=== PATIENT | female | born 1935 | race Caucasian/White ===

== ENCOUNTER 2016-06-21 19:13 | Emergency (ER) | payer BC, MEDICARE ==
[~2016-06-21] VITALS: Ht 139.7 cm; Wt 55.8 kg
[2016-06-21 19:17] VITALS: BP 126/64; PULSE 74; RESP 20; TEMP 98.1; O2SAT 96
[2016-06-21] MEDS ORDERED: ARMO60TA PO (19:34)
[2016-06-21] MEDS ORDERED: FISH120014 (19:34)
[2016-06-21] MEDS ORDERED: TRAZ50TA12 PO (19:34)
[2016-06-21] MEDS ORDERED: FOSA70TA PO (19:34)
[2016-06-21] MEDS ORDERED: PRAV40TA2 PO (19:34)
[2016-06-21] MEDS ORDERED: BIOT1SUB SL (19:34)
[2016-06-21] MEDS ORDERED: CALCTAB19 PO (19:34)
[2016-06-21] MEDS ORDERED: COENPOW21 PO (19:34)
[2016-06-21] MEDS ORDERED: MULT1CHW70 (19:34)
[2016-06-21] MEDS ORDERED: ASPI81CH CHEW (19:34)
[2016-06-21] MEDS ORDERED: PRIL20CA9 PO (19:34)
[2016-06-21] MEDS ORDERED: ESCI10TA PO (19:34)
[2016-06-21] MEDS ORDERED: MOBI15TA PO (19:34)
--- NOTE | 2016-06-21 20:42 | RADHPO ---
EXAM DATE/TIME: 06/21/2016 20:20 [facility] COMPARISON: No previous studies available for comparison. INDICATIONS : Severe right hip pain. No known trauma. MEDICAL HISTORY : None. SURGICAL HISTORY : None. 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 No acute fracture or dislocation. No bony destruct sylvia changes. 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 No acute bony abnormality. Tom Ellis MD on June 21, 2016 at 20:39 Board Certified Radiologist. This report was verified electronically.
--- NOTE | 2016-06-21 20:43 | RADHPO ---
EXAM DATE/TIME: 06/21/2016 20:25 [facility] COMPARISON: No previous studies available for comparison. INDICATIONS : Low back pain. No known trauma. MEDICAL HISTORY : None. SURGICAL HISTORY : Fusion, lumbar. ENCOUNTER: Initial ACUITY: 1 day PAIN SCORE: 8/10 LOCATION: Bilateral Paraspinal FINDINGS: There are five non-rib bearing vertebral bodies. No acute fracture. Postoperative fusion across L4-5 with residual grade 1 anterolisthesis. Bones appear osteopenic. CONCLUSION: 1. Osteopenia. No acute fracture. Minimal anterolisthesis at L4-5 where there is metallic prosthesis at the disc interspace and at the posterior elements. Tom Ellis MD on June 21, 2016 at 20:41 Board Certified Radiologist. This report was verified electronically.
--- NOTE | 2016-06-21 20:53 | PD ---
HPI Chief Complaint: Musculoskeletal Complaint Time Seen by Provider: 18:45 Travel History International Travel<30 days: No Contact w/Intl Traveler<30days: No Traveled to known affect area: No History of Present Illness HPI 81-year-old female presents the emergency Department with increased right hip and low back pain since yesterday. She has history of lumbar back pain with surgery of the L5-S1 years ago. Patient has complaining of pain into the right pelvis and into the right buttock. Patient has history of osteoporosis and arthritis. Is here from the [facility] and has been down here for approximately one month. She has no specific injury. Pain is worse with ambulation and certain movements. She denies weakness, or bowel or bladder issues. Pain at times as 8 out of 10. At rest the pain is 3 out of 10. 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 PFSH Past Medical History Depression: Yes High Cholesterol: Yes Thyroid Disease: Yes Past Surgical History Other Surgery: Yes (SPINAL) Social History Alcohol Use: No Tobacco Use: No Substance Use: No Allergies-Medications (Allergen,Severity, Reaction): Coded Allergies: No Known Allergies (Verified , 06/21/16) Uncoded Allergies: HAZELNUTS (Allergy, Unknown, 11/21/02) NKA (Allergy, Unknown, 11/21/02) Reported Meds & Prescriptions Reported Meds & Active Scripts Active Tramadol (Tramadol HCl) 50 Mg Tab 50 Mg PO Q6H PRN Prednisone 20 Mg Tab 20 Mg PO BID Reported Mobic (Meloxicam) 15 Mg Tab 15 Mg PO DAILY Prilosec (Omeprazole) 20 Mg Cap 20 Mg PO DAILY Fosamax (Alendronate Sodium) 70 Mg Tab 70 Mg PO Q7D Multivitamin Adult (Multiple Vitamins W/ Minerals) 1 Chw Chw Coenzyme Q10 1 Pow Pow 100 Mg PO DAILY Fish Oil (Barney-3 Fatty Acids) 1,200 Mg Cap Aspirin 81 Mg Chew 81 Mg CHEW DAILY Calcium 600+D 200 (Calcium Carbonate-Vitamin D) 600-200 Mg-Unit Tab 1 Tab PO BID Biotin 5,000 Mcg Subl 5,000 Mcg SL Pravastatin 40 Mg Tab 40 Mg PO DAILY Escitalopram (Escitalopram Oxalate) 10 Mg Tab 10 Mg PO DAILY Trazodone (Trazodone HCl) 50 Mg Tab 50 Mg PO HS [place] Thyroid (Thyroid) 60 Mg Tab 60 Mg PO DAILY Review of Systems Except as stated in HPI: all other systems reviewed are Neg General / Constitutional: No: Fever Eyes: No: Visual changes HENT: No: Headaches Cardiovascular: No: Chest Pain or Discomfort Respiratory: No: Shortness of Breath Gastrointestinal: No: Abdominal Pain Genitourinary: No: Dysuria Musculoskeletal: No: Pain Skin: No Rash Neurologic: No: Weakness Psychiatric: No: Depression Endocrine: No: Polydipsia Hematologic/Lymphatic: No: Easy Bruising Physical Exam Narrative GENERAL: Patient appears in mild to moderate distress. SKIN: Warm and dry. No color. Normal turgor. No rash. HEAD: Atraumatic. Normocephalic. EYES: Pupils equal and round. No scleral icterus. No injection or drainage. ENT: No nasal bleeding or discharge. Mucous membranes pink and moist. Pharynx is normal. Airway is patent. NECK: Trachea midline. No JVD. Neck is supple and nontender. CARDIOVASCULAR: Regular rate and rhythm. No murmurs gallops or rubs. RESPIRATORY: No accessory muscle use. Clear to auscultation. Breath sounds equal bilaterally. GASTROINTESTINAL: Abdomen soft, non-tender, nondistended. Hepatic and splenic margins not palpable. No CVA tenderness. MUSCULOSKELETAL: Extremities without clubbing, cyanosis, or edema. No obvious deformities. Patient has scars the lower lumbar, and tenderness in the right sacroiliac and sciatic notch. Straight leg raise is negative bilaterally. Patient has no specific hip tenderness with inner or outer rotation. NEUROLOGICAL: Awake and alert. No obvious cranial nerve deficits. Motor grossly within normal limits. Five out of 5 muscle strength in the arms and legs. Normal speech. PSYCHIATRIC: Appropriate mood and affect; insight and judgment normal. Data Data Last Documented VS Vital Signs Date Time Temp Pulse Resp B/P Pulse Ox O2 Delivery O2 Flow Rate FiO2 06/21/16 19:17 98.1 74 20 126/64 96 Orders Hip, Uni(Ap&Lat) W Ap Pelvis (06/21/16 19:42) Spine, Lumbar Comp W/Obliq (06/21/16 19:42) Prednisone (Deltasone) (06/21/16 21:00) Tramadol (Ultram) (06/21/16 21:00) MDM Medical Decision Making Medical Screen Exam Complete: Yes Emergency Medical Condition: Yes Differential Diagnosis Sacroiliitis. Acute lumbago with sciatica. Bursitis. Narrative Course Patient is medically stable at time of exam. X-rays of the right hip and pelvis are ordered as well as lumbar spine films. X-rays are read as negative for acute process per radiologist. Patient is given prednisone 40 mg by mouth as well as tramadol 50 mg by mouth. Patient is sent home on prednisone 20 mg twice a day 5 days. Patient is given tramadol 50 mg one every 6 hours when necessary pain #20. Patient take extra strength Tylenol as well as needed. Patient is encouraged to walk and keep moving despite pain. Patient should follow-up with her orthopedic surgeon upon return home or return to emergency Department with worsening symptoms if necessary. Diagnosis Primary Impression: Lumbago with sciatica, right side Referrals: Primary Care Physician call for appointment Patient Instructions: General Instructions, Sacroiliitis (ED), Sciatica (ED) Additional Instructions: X-rays are read as negative for acute process per radiologist. Patient is given prednisone 40 mg by mouth as well as tramadol 50 mg by mouth. Patient is sent home on prednisone 20 mg twice a day 5 days. Patient is given tramadol 50 mg one every 6 hours when necessary pain #20. Patient take extra strength Tylenol as well as needed. Patient is encouraged to walk and keep moving despite pain. Patient should follow-up with her orthopedic surgeon upon return home or return to emergency Department with worsening symptoms if necessary. Med/Other Pt SpecificInfo: Prescription(s) given Scripts Tramadol 50 Mg Tab50 Mg PO Q6H PRN (PAIN) #20 TAB Prov:Jennifer Blanca MD 06/21/16 Prednisone 20 Mg Tab20 Mg PO BID #10 TAB Prov:Jennifer Blanca MD 06/21/16 Disposition: 01 DISCHARGE HOME Condition: Stable Tommy Mcmanus Jun 21, 2016 20:53
[2016-06-21] MEDS ORDERED: PRED20 PO (20:54)
[2016-06-21] MEDS ORDERED: TRAM50TA PO (20:54)
[2016-06-21] MEDS ORDERED: predniSONE 20 MG TAB PO ONE (21:00)
[2016-06-21] MEDS ORDERED: traMADol HCL 50 MG TAB PO ONE (21:00)
== END 2016-06-21 21:29 | disposition home or self-care (01) ==
LOC: PHEFT 19:13
DX: M54.41 Lumbago with sciatica, right side (principal)
CPT/HCPCS: 72110; 73502; 99283; J7512